=== PATIENT | female | born 1970 | race Caucasian/White ===

== ENCOUNTER 2022-05-25 21:21 | Emergency (ER) | payer OTHER ==
[~2022-05-25 21:21] MED LIST: MOTRIN600 MG PO; ONDANSETRON ODT4 MG PO
[2022-05-26 01:01] LABS: BILIRUBIN NEGATIVE (NEGATIVE); BLOOD 3+ Ery/uL (NEGATIVE); CLARITY CLEAR (CLEAR); COLOR YELLOW (YELLOW); GLUCOSE (U) NORMAL (NORMAL); LEUKOCYTES 2+ Leu/uL (NEGATIVE); NITRITE NEGATIVE (NEGATIVE); PROTEIN 3+ mg/dL (NEGATIVE); SPECIFIC GRAVITY >=1.030 (1.001-1.030); UROBILINOGEN 0.2 mg/dL (0.2-1.0)
[2022-05-26 01:01] LABS: BASOPHIL 0.8 % (0-2); HCT 45.6 % (37.0-47.0); HGB 14.1 g/dl (12.5-16.0); MCH 27.8 pg (25.0-31.0); MCHC 30.9 g/dL (32.0-36.0); MCV 89.9 fL (78.0-100.0); MONOCYTE 8.6 % (0-12); MPV 10.3 fL (6.0-9.5); NEUTROPHIL 69.2 % (41-80); NRBC 0; PLT 363 K/uL (150-400); RBC 5.07 M/uL (4.20-5.40); RDW 15.5 % (11.5-14.0); WBC 10.3 K/uL (4.0-10.5)
[2022-05-26 01:19] LABS: ALBUMIN 3.6 g/dL (3.4-5.0); BILIRUBIN - TOTAL 0.5 mg/dL (0.2-1.0); BUN/CREAT RATIO (CALC) 11.5 RATIO; CREATININE 0.78 mg/dL (0.51-0.95); GLOBULIN (CALCULATION) 4.3 g/dL; PHOSPHORUS 2.7 mg/dL (2.6-4.7); POTASSIUM 3.5 mmol/L (3.5-5.1); TOTAL PROTEIN 7.9 g/dL (6.4-8.2)
[2022-05-26 01:38] LABS: BACTERIA 3+; URINARY WBC TNTC
[2022-05-26 01:39] LABS: SQUAMOUS EPITHELIAL CELLS RARE
[2022-05-26] MEDS ORDERED: CEFDINIR300 MG PO (04:07)
[2022-05-26] MEDS ORDERED: NAPROXEN500 MG PO (04:07)
[2022-05-26] MEDS ORDERED: PERCOCET 5-3251 EACH PO (04:08)
[2022-05-26] MEDS ORDERED: ONDANSETRON ODT4 MG PO (04:08)
== END 2022-05-26 04:50 | disposition home or self-care (01) ==
LOC: FER 21:21
PROVIDERS: Internal Medicine
DX: N13.0 Hydronephrosis with ureteropelvic junction obstruction (principal); N13.2 Hydronephrosis with renal and ureteral calculous obstruction; R82.71 Bacteriuria; Z28.310 Unvaccinated for COVID-19
CPT/HCPCS: 36415; 80053; 81001; 84100; 85025; 87088; J0696; J2405; J7030